=== PATIENT | male | born 1975 | race Caucasian/White ===

== ENCOUNTER 2020-06-27 06:17 | Emergency (ER) | payer SELFPAY ==
[2020-06-27 06:47] LABS: #Basophils 0.2 thou/uL (0.0-0.2); #Eosinphils 0.1 thou/uL (0.0-0.7); #Lymphocytes 3.1 thou/uL (1.20-3.40); #Monocytes 0.8 thou/uL (0.11-0.59); #Neutrophils 6.6 thou/uL (1.40-6.50); %Basophils 1.5 % (0.0-1.0); %Eosinophils 1.1 % (0.0-10.0); %Lymphocytes 28.8 % (21.0-51.0); %Monocytes 7.6 % (0.0-10.0); %Neutrophils 60.9 % (42.0-75.0); Hemoglobin 16.9 g/dL (14.0-18.0); Mean Corpuscular HGB CONC 32.7 g/dL (32.0-36.0); Mean Corpuscular Hemoglobin 30.6 pg (27.0-31.0); Mean Corpuscular Volume 93.5 fL (78.0-98.0); Mean Platelet Volume 9.5 fL (7.4-10.4); Platelet Count 205 thou/uL (130-400); RBC Distribution Width 11.2 % (11.5-14.5); Red Blood Cell (RBC) Count 5.53 mill/uL (4.70-6.10); White Blood Cell (WBC) Count 10.8 thou/uL (4.8-10.8)
[2020-06-27] MEDS ORDERED: HYDROmorphone 0.5 MG/0.5 ML SYRINGE ONE (06:47)
[2020-06-27] MEDS ORDERED: Piperacillin/Tazobactam 4.5 GM VIAL ONE (06:53)
[2020-06-27] MEDS ORDERED: Sodium Chloride 0.9% 100 ML ONE (06:53)
[2020-06-27 07:08] LABS: ALT (SGPT) 33 U/L (8-55); AST (SGOT) 21 U/L (5-34); Albumin 4.2 g/dL (3.5-5.0); Alkaline Phosphatase 72 U/L (40-110); Anion Gap 20 mmol/L (10-20); BUN (Urea Nitrogen) 14 mg/dL (8.9-20.6); Bilirubin, Total 0.4 mg/dL (0.2-1.2); Calc. Creatinine Clearance 0 mL/min (70-130); Calcium 9.5 mg/dL (7.8-10.44); Carbon Dioxide 18 mmol/L (22-29); Chloride 107 mmol/L (98-107); Globulin 3.3 g/dL (2.4-3.5); Glucose 150 mg/dL (70-105); Potassium 3.9 mmol/L (3.5-5.1); Protein, Total 7.5 g/dL (6.0-8.3); Sodium 141 mmol/L (136-145)
[2020-06-27] MEDS ORDERED: Sodium Chloride 0.9% 1,000 ML ONE (08:04)
--- NOTE | 2020-06-27 11:00 | CT ---
CT ABDOMEN AND PELVIS WITHOUT CONTRAST: Date: 06/27/2020 INDICATION: Enlarging umbilical hernia and concern for ruptured hernia. COMPARISON: None. FINDINGS: There is a small fat-containing umbilical hernia with the hernia mouth measuring 1.2 cm on image 59 o f series 2. Adjacent to the umbilical hernia to the right is a right periumbilical hernia containing omental fat with a hernia mouth measuring 4.3 cm. There is no evidence of fat strangulation. Unopacified liver, pancreas, adrenal glands, spleen, and kidneys reveal no definite acute abnormality . There are mild vascular calcifications involving the distal abdominal aorta and proximal common iliac arteries. Unopacified large and small bowel are unremarkable appearing. There is a normal appendix. No free fluid is evident. The bladder is partially decompressed. There is mild scattered degenerative change of the visualized osseous structures. IMPRESSION: Umbilical and periumbilical abdominal hernias. No evidence of strangulation. POS: [facility]
== END 2020-06-27 09:18 | disposition home or self-care (01) ==
LOC: MADERS 06:17
DX: K42.9 Umbilical hernia without obstruction or gangrene (principal); F17.210 Nicotine dependence, cigarettes, uncomplicated
CPT/HCPCS: 74176; 80053; 83605; 83690; 85025; 96365; 96375; J1170; J2543; J3490; J7050